=== PATIENT | male | born 1935 | race Caucasian/White ===

== ENCOUNTER → 2023-08-16 09:42 | Outpatient (REF) | payer MEDICARE, BC, SELFPAY | LOC: RCS 09:42 | PROVIDERS: ATTENDING PHYSICIAN Internal Medicine | DX: I35.0 Nonrheumatic aortic (valve) stenosis (principal) | CPT/HCPCS: 93306 ==

== ENCOUNTER → 2023-10-29 06:31 | Outpatient (REF) | payer MEDICARE, BC, SELFPAY ==
[2023-10-29 08:32] LABS: ALT (SGPT) 14 U/L (0-50); AST (SGOT) 21 U/L (17-59); Alkaline Phosphatase 113 U/L (38-126); Blood Urea Nitrogen 25 mg/dl (9-20); Calcium 9.4 mg/dl (8.4-10.2); Carbon Dioxide 28 mmol/L (22-30); Chloride 105 mmol/L (98-107); Glucose 97 mg/dl (70-99); HDL Cholesterol 45 mg/dl; LDL Cholesterol, Calculated 26 mg/dl; Potassium 4.8 mmol/L (3.5-5.1); Sodium 142 mmol/L (135-145); Total Bilirubin 0.6 mg/dl (0.2-1.3); Total Cholesterol 91 mg/dl (50-199); Total Protein 6.6 g/dl (6.3-8.2); Triglyceride 101 mg/dl (10-149); Very Low Density Lipoprotein 20 mg/dl (0-30); eGFR 58.53
== END ==
LOC: REG 06:31
PROVIDERS: ATTENDING PHYSICIAN Internal Medicine Cardiovascular Disease; FAMILY PHYSICIAN Internal Medicine
DX: I48.91 Unspecified atrial fibrillation (principal); I10 Essential (primary) hypertension; E78.5 Hyperlipidemia, unspecified; E78.49 Other hyperlipidemia
CPT/HCPCS: 36415; 80053; 80061

== ENCOUNTER → 2024-04-30 08:46 | Outpatient (REF) | payer MEDICARE, BC, SELFPAY | LOC: RCS 08:46 | PROVIDERS: ATTENDING PHYSICIAN Internal Medicine Cardiovascular Disease; FAMILY PHYSICIAN Internal Medicine | DX: I35.0 Nonrheumatic aortic (valve) stenosis (principal) | CPT/HCPCS: 93306 ==

== ENCOUNTER 2024-05-27 06:17 | Day surgery (SDC) | payer MEDICARE, BC, SELFPAY ==
[2024-05-25 08:11] VITALS: BMI 30.4
[2024-05-27] VITALS (14 sets, daily range): BP systolic 121–156; BP diastolic 53–88
[2024-05-27] MEDS: LOW STRENGTH ASPIRIN 324 MG PO (07:16)
--- NOTE | 2024-05-27 11:07 | CONSULT.STRU ---
Consultation
-
Date/Time Consultation Requested: 05/27/2024
Date/Time Consultation Performed: 05/27/2024
Requesting Provider: Barb Lubin MD
Performing Provider: MARCEL Andersen
Reason for Consultation: /TAVR
Patient History
Physicians
Family Physician: Dung Frazier MD
Outpatient Event Planning Intern: Rene Hebert MD
Primary Event Planning Intern: Rene Hebert MD
History of Present Illness
Mr. Nunez is an 88 yom with a history of critical , CVA, HTN, AF, and PFO. His echocardiogram from 04/30/2024 is notable for an EF 55-60%, AV P/M 104/64, RONNI 0.64, pk jennifer 5.04, mild AI, mild Ms, mild MR, MAC, mild TR, PAP 38. Patient's cardiac
catheterization from today (05/27) is significant for MVCAD. From a symptomatology standpoint, Mr. Nunez describes MONTOYA/SOB that has progressively gotten worse over the last several months. He also has slight left ACW discomfort that last very briefly
(1-2 seconds) and positional dizziness. He denies PND, palpitations, edema, or fever. Discussed the pathophysiology and treatment options of including SAVR and TAVR. Also explained to patient and daughter he also has MVCAD. Explained the
evaluation process comprising of CT scan, CT surgical consult, dental clearance, and a heart team discussion. The heart team will discuss management of MVCAD and TAVR as well as timing. The patient adamantly expressed his wishes not to have an open
heart procedure. Appointments, prescriptions, TAVR booklet, and contact information given to kalint and daughter. Allowed for and answered questions at bedside.
Past Medical History
Past Medical History: Atrial Fib, CVA/TIA, HTN, Valvular Disease (critical , mild MS) and Other (hyperlipidemia, PFO)
Past Surgical History
Past Surgical History: Cholecystectomy and Orthopedic ((R) shoulder RTC repair)
Dental History
unable to recall the name of his dentist. He will make an appointment and let us know the name.
Family History
Mother: at Age
Father: at Age
Family Medical History: Early CAD and Diabetes
Social History
Alcohol: Occasional
Drug: None
Tobacco: Former Smoker
Living: Alone
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
Allergies
Allergy/AdvReac Type Severity Reaction Status Date / Time
No Known Drug Allergies Allergy Unknown Verified 05/27/24 07:02
Home Medications
�Medication �Instructions �Recorded �Confirmed �Type
atorvastatin 40 mg tablet 40 mg PO QPM #30 tabs 11/11/20 05/27/24 Rx
lisinopril 10 mg tablet 10 mg PO BID #60 tabs 11/11/20 05/27/24 Rx
amlodipine 5 mg tablet 5 mg PO DAILY #60 tabs 12/07/20 05/27/24 Rx
apixaban 5 mg tablet (Eliquis) 5 mg PO Q12H 12/07/20 05/27/24 Rx
aspirin 81 mg chewable tablet 81 mg PO DAILY #1 tab 05/27/24 Rx
STS%
STS %: 4.17 (AVR)
Review of Systems
-
History Source: Patient
General: Reports Fatigue
HEENT: Reports Other (chronic dry cough)
Respiratory: Reports SOB and MONTOYA
Cardiac: Reports Chest Pain (minor, brief LACW 'twinge')
Abdomen/GI: Reports No Symptoms
: Reports No Symptoms
Musculoskeletal: Reports No Symptoms
Skin: Reports No Symptoms
Neurological: Reports Dizzy (positional )
Physical Exam
Vital Signs
Temp 98.3 F 05/27/24 07:31
Temp route: Oral 05/27/24 07:31
Pulse 43 05/27/24 11:00
Resp Rate 16 05/27/24 07:31
Blood pressure 133/82 02/06/25 10:53
Blood pressure extremity used: Left upper arm 05/27/24 07:31
Position: Lying 05/27/24 07:31
MAP (cuff-Dalila Monitor) 99 05/27/24 10:53
SaO2 96 05/27/24 11:00
Oxygen Mode of Delivery Room air 05/27/24 09:45
Can the patient verbally communicate their pain? Yes 05/27/24 09:45
Actual Weight 85.3 kg 05/25/24 08:11
Body Mass Index (BMI) 30.4 05/25/24 08:11
Labs
05/25/2024
HH: 14.3/42.6
plt: [id number]
BUN/Cr: 311.1
GFR: >60
Diagnostic Studies
Echocardiogram 04/30/2024:
CONCLUSIONS
1. Very technically difficult study.
2. Moderate concentric left ventricular hypertrophy. Normal left ventricular
systolic function without regional wall motion abnormalities. Estimated left
ventricular ejection fraction is 55 to 60% by visual estimation. Stage I
diastolic dysfunction, suggestive of abnormal relaxation.
2. Normal right ventricular size and systolic function.
3. Moderately dilated left atrium.
4. Calcified thickened aortic valve with restricted leaflet motion. Peak and
mean transaortic gradients are 104/64 mmHg, respectively. Calculated aortic
valve area is 0.64 cm2 by the continuity equation consistent with
severe/critical aortic stenosis. Mild to moderate aortic regurgitation.
Dimensionless index of 0.2. Stroke-volume index of 45 mL/m2.
5. Mild tricuspid regurgitation with estimated pulmonary artery systolic
pressure of 38 mmHg, assuming a right atrial pressure of 3 mmHg.
6. No pericardial effusion.
Compared to prior echocardiogram from August 16, 2023, mean transaortic gradient
increased from 44 to 64 mmHg with aortic valve area decreasing from 0.8 to 0.6
cm2
Procedure Type:�CABG + AVR
Perioperative Outcome Estimate %
Operative Mortality 5.32%
Morbidity & Mortality 17.3%
Stroke 2.6%
Renal Failure 2.43%
Reoperation 5.19%
Prolonged Ventilation 9.17%
Deep Sternal Wound Infection 0.13%
Long Hospital Stay (>14 days) 16.5%
Short Hospital Stay (<6 days)* 12.7%
Procedure Type:�Isolated AVR
Perioperative Outcome Estimate %
Operative Mortality 4.12%
Morbidity & Mortality 10.1%
Stroke 1.8%
Renal Failure 1.98%
Reoperation 3.26%
Prolonged Ventilation 5.95%
Deep Sternal Wound Infection 0.071%
Long Hospital Stay (>14 days) 6.42%
Short Hospital Stay (<6 days)* 30.3%
Exam
General: Well Developed and Well Nourished
HEENT: Normocephalic
Neck: Trachea Midline
Respiratory: Clear (anteriorly)
Cardiac: S1/S2, Regular Rhythm and Murmur (III/ MAHSA)
GI: Soft and Non Tender
Rectal: Deferred by Provider
Skin: Warm and Dry
Neuro: Awake, Alert, Oriented and AO x 3
Psych: Calm
Assessment / Plan
-
Severe aortic stenosis
Continue TAVR evaluation
Trend creatinine after contrast administration (Rx given)
TAVR CT scan (06/08)
CT surgical consult (06/14 TT)
Frailty testing and KCCQ12
Dental clearance
Will hold Eliquis x 48 hours before TAVR
Continue aspirin
Heart team discussion
Data Reviewed
-
Mash Tub Cooker: Discussed with Physician
Echo: Report Reviewed by me and Discussed with Physician
Labs: Labs Reviewed by me
Old Records: Reviewed (Dr. Hebert's office note)
Total Time Spent with Patient (in minutes): 45
--- NOTE | 2024-05-27 11:36 | ITS.CL.CATH ---
Display Manager - Catheterization
Cardiac Catheterization
Procedure Report:
LEFT HEART CATHETERIZATION
Date of Procedure: May 27, 2024
Referring: Deshawn Hebert
PROCEDURES:
1. Left heart catheterization, coronary angiogram.
2. Ultrasound-guided access.
INDICATION: Pre-TAVR workup for critical aortic stenosis, mean aortic valve gradient on most recent echo more than 60 mmHg. Patient only complains of ongoing fatigue and increased tiredness without chest discomfort or shortness of breath at rest or
with exertion
ACCESS: Right radial artery, 6 Nepalese sheath, under ultrasound guidance.
Ultrasound was utilized for vascular access. The radial artery was visualized under ultrasound, and the vessel was patent and pulsatile. An image was stored permanently in the patient's medical record. Under direct ultrasound guidance, a 6 Nepalese
sheath was inserted into the artery using a micropuncture kit through a modified Seldinger technique.
HEMODYNAMICS : (mmHg)
AO (s/d) : 148/51
Aortic valve was not crossed for LV pressures in the setting of known critical aortic stenosis based on most recent echocardiogram.
CORONARY FINDINGS
DOMINANCE: Right
LEFT MAIN: The left main artery is a large-caliber vessel which gives rise to the left anterior descending artery, the ramus intermedius branch and a left circumflex artery. There is mild distal tapering.
LEFT ANTERIOR DESCENDING: The left anterior descending artery is a medium caliber vessel which gives rise to 3 major diagonal branches as it courses through the anterior interventricular groove and wraps around the apex. D1 is a medium caliber
vessel with ostial to proximal 60% stenosis. D2 is a small to medium caliber vessel with ostial 80% stenosis. Ostial LAD has a tubular 70% stenosis with heavily calcified 90% stenosis at the level of the takeoff of D2.
RAMUS INTERMEDIUS: The ramus intermedius branch is a medium to large caliber vessel with a slightly, heavily calcified ostial to proximal up to 70 to 80% stenosis.
CIRCUMFLEX: The left circumflex artery is a medium to large caliber vessel which gives rise to 1 major obtuse marginal branch. There is a calcified ostial 50 to 60% focal stenosis. Otherwise there is mild diffuse atherosclerotic plaque.
RIGHT CORONARY ARTERY: The right coronary artery is a medium caliber, dominant vessel which gives rise to the right posterior descending artery and a small right posterolateral system. The distal RCA has tubular 60% stenosis. Ostial PL branch
which is small in caliber has 50 to 60% stenosis. Otherwise there is mild diffuse atherosclerotic plaque.
SEDATION: 44 minutes of procedural sedation was utilized. An independent medical education coordinator was present to assist with and help manage the patient's level of consciousness and physiologic status.
RADIATION SUMMARY: Fluoro Time (min): 4.8, Dose (mGy): 534.48, DAP (Gy.cm2) : 31.95
Closure Device: Vascular band over right radial artery, 10 cc of air
CONCLUSIONS
1. Significant multivessel coronary artery disease as described above.
2. Known critical aortic stenosis with mean transaortic gradient of 64 mmHg by most recent echocardiogram.
RECOMMENDATIONS
1. We will proceed with TAVR protocol CT of chest, abdomen and pelvis and CT surgery consult with plan to review all of the data and discuss at the next structural heart meeting in regards to best treatment strategy.
2. Aggressive management of cardiovascular risk factors and optimization of medical therapy.
3. Wean radial band per protocol.
4. Eventual referral for outpatient cardiac rehab.
Copy to: Deshawn Hebert
Barb Lubin MD, FACC, [facility]
== END 2024-05-27 12:30 | disposition home or self-care (01) ==
LOC: CATH 06:17
PROVIDERS: ATTENDING PHYSICIAN Internal Medicine Interventional Cardiology; FAMILY PHYSICIAN Internal Medicine; OTHER PHYSICIAN Internal Medicine Cardiovascular Disease
DX: I08.3 Combined rheumatic disorders of mitral, aortic and tricuspid valves (principal); I25.10 Atherosclerotic heart disease of native coronary artery without angina pectoris; R06.02 Shortness of breath; I25.84 Coronary atherosclerosis due to calcified coronary lesion; Q21.12 Patent foramen ovale; E78.49 Other hyperlipidemia; I11.9 Hypertensive heart disease without heart failure; Z82.49 Family history of ischemic heart disease and other diseases of the circulatory system; Z86.73 Personal history of transient ischemic attack (TIA), and cerebral infarction without residual deficits; Z87.891 Personal history of nicotine dependence; R53.83 Other fatigue; Z90.49 Acquired absence of other specified parts of digestive tract; Z79.82 Long term (current) use of aspirin; Z79.01 Long term (current) use of anticoagulants; Z79.899 Other long term (current) drug therapy
CPT/HCPCS: 99152; 99153; 76937; 93454; C1894; Q9967

== ENCOUNTER → 2024-05-28 13:04 | Outpatient (REF) | payer MEDICARE, BC, SELFPAY ==
[2024-05-28 14:41] LABS: Blood Urea Nitrogen 31 mg/dl (9-20); Calcium 9.1 mg/dl (8.4-10.2); Carbon Dioxide 31 mmol/L (22-30); Chloride 104 mmol/L (98-107); Glucose 94 mg/dl (70-99); Sodium 140 mmol/L (135-145); eGFR 58.53
== END ==
LOC: REG 13:04
PROVIDERS: ATTENDING PHYSICIAN Nurse Practitioner Acute Care; FAMILY PHYSICIAN Internal Medicine
DX: I35.0 Nonrheumatic aortic (valve) stenosis (principal)
CPT/HCPCS: 36415; 80048

== ENCOUNTER → 2024-06-08 09:58 | Outpatient (REF) | payer MEDICARE, BC, SELFPAY | LOC: RAD 09:58 | PROVIDERS: ATTENDING PHYSICIAN Nurse Practitioner Acute Care | DX: I35.0 Nonrheumatic aortic (valve) stenosis (principal) | CPT/HCPCS: 74174; 75572; Q9967 ==

== ENCOUNTER 2024-07-01 09:17 | Inpatient (IN) | payer MEDICARE, BC, SELFPAY ==
[2024-06-25 09:53] VITALS: BMI 29.5
[2024-06-25 10:36] LABS: % Basophils 0.5 % (0-2); % Eosinophils 8.8 % (0-6); % Immature Granulocytes 0.3 % (0-0.5); % Lymphocytes 25.1 % (20.5-51.1); % Monocytes 6.7 % (1.7-9.3); % Neutrophils 58.6 % (42.2-75.2); Absolute Eosinophils 0.7 10^3/uL (0-0.7); Absolute Monocytes 0.5 10^3/uL (0.1-0.6); Absolute Neutrophils 4.6 10^3/uL (1.4-6.5); Hematocrit 42.9 % (39.0-52.0); Hemoglobin 14.3 g/dL (13.0-18.0); Mean Corp Hgb Conc. 33.3 g/dL (33.0-37.0); Mean Corpuscular Hgb 30.7 pg (27.0-31.0); Mean Corpuscular Volume 92.1 fL (80.0-94.0); Mean Platelet Volume 10.1 fL (7.4-10.4); Nucleated Red Blood Cells % 0 % (-); Platelet Count 193 10^3/uL (130-400); Red Blood Cell Count 4.66 10^6/uL (4.70-6.10); White Blood Cell Count 7.8 10^3/uL (4.8-10.8)
[2024-06-25 10:44] LABS: INR 1.13; PT 14.8 Sec (11.4-14.6)
[2024-06-25 10:45] LABS: APTT 31.4 Sec (23.4-35.0)
[2024-06-25 10:51] LABS: ALT (SGPT) 14 U/L (0-50); AST (SGOT) 17 U/L (17-59); Albumin 3.9 g/dl (3.5-5.0); Alkaline Phosphatase 114 U/L (38-126); Blood Urea Nitrogen 29 mg/dl (9-20); Calcium 9.3 mg/dl (8.4-10.2); Carbon Dioxide 30 mmol/L (22-30); Chloride 102 mmol/L (98-107); Direct Bilirubin 0.1 mg/dl (0.0-0.4); Estimated Creatinine Clearance 37 ml/min; Glucose 158 mg/dl (70-99); Potassium 4.7 mmol/L (3.5-5.1); Sodium 139 mmol/L (135-145); Total Bilirubin 0.7 mg/dl (0.2-1.3); Total Protein 6.8 g/dl (6.3-8.2); eGFR 53.17
[2024-06-25 10:59] LABS: NT-proBNP 1280 pg/ml
[2024-06-25 11:08] LABS: Urine Albumin 2+ (Neg - Trace); Urine Bilirubin Negative (Negative); Urine Character Clear (Clear); Urine Color Yellow; Urine Glucose Negative (Negative); Urine Ketone Negative (Negative); Urine Leukocyte Negative (Negative); Urine Nitrite Negative (Negative); Urine Occult Blood Negative (Negative); Urine Specific Gravity 1.015 (<1.030); Urine Urobilinogen Negative (Neg - 1+)
[2024-06-25 11:35] LABS: Urine Mucus Many
[2024-06-25 11:36] LABS: Urine Amorphous Seen
[2024-06-25 11:37] LABS: Urine Red Blood Cell 0-2 /HPF (0-2)
[2024-06-25 11:39] LABS: Urine Bacteria Few (Negative)
--- NOTE | 2024-06-25 11:56 | CM ---
spoke to pt and daughter in PAT's. he is prev indep, lives alone in a split level home with 3 steps to enter. he denies any dme's. he is agreeable to a f/u visit from the ct transitional care nurse after dc. he has the TAVR educ book, soap and
instructions. plan is for TAVR 07/01, cm role explained and all questions answered.
[2024-06-25 11:58] LABS: Glycohemoglobin (HgbA1c) 5.8 % (4.0-5.6)
[2024-07-01] VITALS (16 sets, daily range): BP systolic 117–151; BP diastolic 51–67; BMI 29.5
[2024-07-01 09:45] LABS: Glucose - Point of Care 95 mg/dl (70-99)
--- NOTE | 2024-07-01 09:45 | W.CVOR.SURPR ---
CVOR Surgeon Immed Pre Op
-
I have examined this patient prior to performance of the scheduled procedure.
The patient's condition is unchanged from the time of the dictated/written History and
Physical and the patient is able to undergo the scheduled procedure.
TF TAVR
Mr. Nunez has determined he is a Limited Rescue, shocks/CPR only.
No sternotomy no CPB.
--- NOTE | 2024-07-01 12:36 | ITS.CL.TAVR ---
Stock Drier Tender - TAVR Report
TAVR PRocedure
Procedure Report:
TRANSCATHETER AORTIC VALVE REPLACEMENT
Date of Procedure: July 01, 2024
Referring: Deshawn Hebert MD
Operators: Drs. Barb Lubin and Dimitri Claudio MD
PROCEDURE PERFORMED:
1. Successful placement of 26 mm Mooney Noemi S3 aortic valve via right common femoral approach.
ACCESS:
1. Left common femoral artery, 6 [place]an sheath, under ultrasound guidance using a micropuncture kit.
2. Left common femoral vein, 6 [place]an sheath, under ultrasound guidance using a micropuncture kit.
3. Right common femoral artery, 8 [place]an sheath, under ultrasound guidance using a micropuncture kit.
Ultrasound was utilized for vascular access. The right and left femoral artery and vein were visualized under ultrasound, and the vessels was patent and arteries were pulsatile. An image was stored permanently in the patient's medical record.
Under direct ultrasound guidance, a 6 [place]an sheaths was inserted into the left common femoral artery and vein, and an 8 [place]an sheath in the right common femoral artery, respectively, using a micropuncture kit through a modified Seldinger technique.
PREPROCEDURE NYHA CLASS: II
DESCRIPTION OF PROCEDURE: The patient was referred for assessment of severe symptomatic aortic stenosis and following a comprehensive evaluation it was felt that transcatheter aortic valve replacement (TAVR) would be the most appropriate treatment.
Informed consent was obtained prior to the procedure. A 'time-out' was called and the procedural plan was verbally confirmed by anesthesia, surgery, perfusion, and garden labourer staff.
Arterial and venous access site were obtained in the left common femoral artery and vein using ultrasound guidance and micropuncture technique. 6 Fr. sheaths were inserted.
A 5 Fr. transvenous pacing wire was advanced to the right ventricle where excellent pacing thresholds were obtained.
A 5 Fr. pigtail catheter was then advanced to the proximal ascending aorta / right aortic cusp where angiography was performed in multiple angles to define the co-planar angle that was most appropriate valve deployment (PAKISTANI 8/caudal 25).
Ultrasound guidance was then used to obtain arterial access in the right common femoral artery and a 6 Fr. sheath was inserted. Angiography was performed and the arteriotomy site appeared appropriate for preclosure with two Perclose devices. An 8
Fr sheath was then inserted back into the common femoral artery over a J-tipped guidewire. An AL1 catheter was positioned in the proximal descending aorta. An Extra Stiff 0.035' J-tip wire was inserted to provide extra-support to facilitate the
Mooney eSheath delivery. The 14 Fr. Mooney eSheath was successfully advanced in the descending thoracic aorta.
An AL1 catheter was advanced through the Mooney eSheath over a 0.035' J-tip guide wire. The AL1 catheter was positioned just above the aortic valve. A 0.035' Straight tip wire probed the aortic valve and crossed the stenotic leaflets. The AL1
was then advanced to the mid left ventricle. Invasive left ventricular end-diastolic pressure was elevated at 23 mmHg. An Amplatz Extra-stiff wire with a generous curved tip was then positioned in the left ventricular apex. A 26 mm Mooney Noemi
S3 valve was brought to the table and the orientation of the valve on the balloon delivery system was confirmed by all operators. The Noemi S3 valve was advanced through the eSheath and into the proximal descending thoracic aorta. The Noemi S3
valve was centered on the delivery balloon and the entire system was retroflexed as it crossed the aortic arch. The Noemi S3 delivery system was then advanced across the stenotic valve and the 26 mm Noemi S3 valve was deployed during rapid
pacing. The valve deployment was uneventful. Transthoracic echocardiographic images post valve deployment revealed minimal aortic insufficiency with excellent position of the aortic prosthesis.
The Mooney balloon and delivery system were then removed. The Mooney sheath was removed and the Perclose knots were advanced to the arteriotomy site resulting in excellent hemostasis.
Fluoro Time: 17.1 min, Dose: 1141.72 mGy, DAP : 83.54 Gy.cm2
CONCLUSIONS:
1. Severe symptomatic aortic stenosis. Successful deployment of a 26 mm Noemi S3 valve with minimal aortic insufficiency post procedure
2. Successful arteriotomy closure with 2 Perclose devices.
3. Acute on chronic diastolic heart failure with LVEDP elevated at 23 mmHg
Copy to: Deshawn Hebert MD and Dung Frazier MD
Barb Lubin MD, [facility], [facility]
[2024-07-01] MEDS: ANCEF 10 IV ×2 (12:42)
[2024-07-01 13:42] LABS: ACT-LR - POC 303 Seconds (116-155)
--- NOTE | 2024-07-01 13:56 | CM ---
Chart reviewed. Patient is in the OR today. Patient is independent of ADLS, lives alone in a split level, 3 TYLER, 0 DME. Plan is for the patient to return home with CT Transitional RN. CM to follow
--- NOTE | 2024-07-01 14:19 | W.PN.CT.SURG ---
CT Surgery Operative Note
-
OPERATIVE REPORT
Preoperative Diagnosis: Severe aortic valve stenosis, symptomatic
Postoperative Diagnosis: Same
Procedure(s) Performed: Right trans femoral TAVR with a 26mm, nominal, Mooney TAVR valve with pre-TAVR BAV
Date of Procedure: 07/01/24
Comorbidities:
1. Severe aortic stenosis, symptomatic
2. sinus bradycardia
3. hypertension
4. HLD
5. multi vessel CAD
6. type 2 diabetes
Cardiac Surgeon: Dimitri Claudio MD, MS
Locomotive Supervisor: Barb Lubin MD
Anesthesia: Conscious Sedation and Local Analgesia
EBL: 100cc
Products: none
Implant: 26 mm Mooney TAVR valve, SN: [id number]
Indication(s) for Procedures: 88-year-old male with symptomatic severe aortic stenosis. CT-TAVR protocol revealed acceptable anatomy for TAVR access and implantation. He has multiple vessel coronary artery disease however given his comorbidities
and frailty, he was not considered an optimal candidate for surgical revascularization and surgical aortic valve replacement. Plan is to move forward with intervention on his aortic valve stenosis and then revisit his coronary disease as needed.
Start time: 1300hrs
Deployment time: 1350hrs
End time: 1407hrs
Radiation Dose (mGy): 1141.72
DAP (cm2.Gy): 83.5410
Fluoroscopy time (minutes): 17.1
Contrast volume (ml): 142
TAVR gradient (mmHg): Unable
Heparin Dose: 7000units
Protamine Dose: 40mg
Final Valve Positionin/10
Findings: An echocardiogram was unable to be performed due to poor windows. Hemodynamically was stable after deployment of the valve. The aortic valve appeared well seated with trace to mild detectable PVL on aortogram. He did return to a sinus
bradycardic rhythm after pulling the valve however there was intermittent paced beats and so the temporary pacing wire was left in place. There was successful placement of 26 mm nominal TAVR valve without acute complications.
Access:
1. Device -right common femoral artery, perclose x 2
2. Pigtail -left common femoral artery +6 Erit[place]an Angio-Seal
3. Transvenous Pacer -left common femoral vein, transvenous temporary wire left in place with 6 Eritrean sheath
Description of Procedure: The patient was taken to the curb and gutter laborer. Their identity and procedure to be performed were verified and they were positioned supine on the curb and gutter laborer table. Induction via conscious sedation. The patient was then prepped and
draped from chin to thigh in a sterile fashion. A preoperative time-out was performed with all members of the team present. Arterial and venous access was performed using fluoroscopy and ultrasound guidance with micropuncture and Seldinger
technique. Two perclose devices were used on the device side followed by access to the aorta with a stiff wire to facilitate E-sheath placement. Heparin was given. A stiff straight wire and AL-1 catheter was used to cross the aortic valve. The stiff
wire was exchanged for an extra stiff coiled tip wire. The valve was prepped and mounted on to the device carrier. An ACT of >250 was achieved. We verified x 3 that the valve was mounted in the correct orientation with the skirt of the valve
directed toward the tip of the device carrier. At this point with access to the left ventricle, a BAV balloon was inserted and crossed. Under rapid pacing at 180 bpm, we performed a balloon valvuloplasty with good effect. There is rapid recovery
of vitals. The balloon was then removed and over the same wire we advanced the device into the descending thoracic aorta where the valve was them mounted onto the balloon under fluoroscopy. The device was flexed and advanced over the arch into the
root and positioned across the aortic valve. Contrast fluoroscopy was used to visualize the prosthesis across the valve and to guide positioning. A pigtail catheter in the RCC as used as a guide. We aimed to have the bottom of the device marker at
the annular hinge point. The device sheath was pulled back. We performed a quick pre-deployment time out. The pacer was turned on and had capture. Blood pressure fell accordingly, angiography was done to verify the intended final placement and the
valve was deployed with 5 seconds of rapid pacing to nominal volume. The balloon was deflated and the pacer was turned off. We had recovery of vitals. The device carrier was unflexed and positioned back in the descending thoracic aorta. A
transthoracic echocardiogram was attempted however there were poor windows and were unable to obtain good images. The device was removed from the E-Sheath maintaining wire access followed by removal of the E-sheath as we cinched down the perclose
devices. There was acceptable hemostasis. The pigtail was withdrawn into the descending/abdominal and completion aortogram with runoff run-off angiography was performed. There was no stenosis or dissection of bilateral iliofemoral systems. There was
acceptable hemostasis of bilateral groins and manual pressure was held following wire removal. Low dose protamine was administered after checking another ACT.
All instrument, sponge, and needle counts were confirmed to be correct x 2 at the end of the operation. The patient was transferred to the cardiac intensive care unit in stable condition.
I, Dr. Dimitri Claudio, was present, scrubbed for, and performed all critical elements of this procedure.
Dimitri Claudio MD
Cardiothoracic Surgeon
[facility]
This operative dictation was created using the [employer] dictation system. Please excuse any grammatical, typographical, or 'sound alike' errors
--- NOTE | 2024-07-01 15:32 | W.PN.UPDATE ---
Update Note
Progress Note Update
Reviewed Mr. Nunez with the heart team in the preTAVR SDM meeting and confirmed a 26mm S3 via right TF access. Patient will resume Eliquis and Aspirin post TAVR. LVEDP 23mmHg. #26mm S3 (serial# [id number]) successfully deployed via (R) TF access.
Unable to obtain post implant MG.
--- NOTE | 2024-07-01 16:25 | PTCARENOTE ---
Rec'd Pt from recovery s/p TAVR, A,A+Ox3, HR 40's SB. Pt has trans-venous pacer wire to temporary pacer, settings- HR 35, MA 20. L femoral vein sheath sutured in place. NSS infusing at KVO via L femoral vein. Bilat femoral artery dsgs D+I, Weak DP
pulses. Neuro check WNL.
[2024-07-01] MEDS: LIPITOR 40 MG PO (18:04)
[2024-07-01] MEDS: NSS 1000 IV (18:31)
[2024-07-01] MEDS: MELATONIN 5 MG PO (21:39)
[2024-07-01] MEDS: ANCEF 5 IV (21:39)
[2024-07-02] VITALS (18 sets, daily range): BP systolic 118–165; BP diastolic 49–70; PULSE 67; O2SAT 96; BMI 29.8
[2024-07-02] MEDS: ROXICODONE 5 MG PO (01:05)
--- NOTE | 2024-07-02 01:21 | PTCARENOTE ---
assumed care of patient at the change of shift. AAOx3. neuro intact. SB 40s on tele. L venous sheath in place. temporary pacer- HR 35, MA 20. dressing CDI. KVO fluids infusing. LLE-+ DP pulse/leg warm/+ sensation. R groin site intact-old
drainage-marked, no change. reviewed activity restrictions with patient and verbalized understanding. patient able to void in urinal. NPO at midnight for possible permanent PPM in AM.
at approx 0100, patient rang for RN complaining of lower back pain. patient appears uncomfortable. PRN oxy 5 mg given, see mar. b/l groin sites intact/soft. adjusted patient in bed. comfort measures provided.
[2024-07-02 04:55] LABS: Hematocrit 35.9 % (39.0-52.0); Hemoglobin 12.4 g/dL (13.0-18.0); Mean Corp Hgb Conc. 34.5 g/dL (33.0-37.0); Mean Corpuscular Hgb 31.5 pg (27.0-31.0); Mean Corpuscular Volume 91.1 fL (80.0-94.0); Mean Platelet Volume 10.3 fL (7.4-10.4); Platelet Count 132 10^3/uL (130-400); Red Blood Cell Count 3.94 10^6/uL (4.70-6.10); Red Cell Dist. Width 12.9 % (11.5-14.5); White Blood Cell Count 11.1 10^3/uL (4.8-10.8)
[2024-07-02 05:19] LABS: Blood Urea Nitrogen 28 mg/dl (9-20); Calcium 8.9 mg/dl (8.4-10.2); Carbon Dioxide 26 mmol/L (22-30); Chloride 102 mmol/L (98-107); Estimated Creatinine Clearance 44 ml/min; Glucose 101 mg/dl (70-99); Sodium 136 mmol/L (135-145); eGFR > 60.00
--- NOTE | 2024-07-02 05:46 | PTCARENOTE ---
patient urinating small amounts of yellow urine. denies any discomfort. bladder scan 416. patient urinated another small amount-90cc. post void residual-350. Meaghan CASTRO PA aware. will hold off on straight cath right now. patient educated to
updated RN with any bladder discomfort.
b/l groin sites intact/no changes overnight. HR SB 40s. bp stable.
[2024-07-02] MEDS: DILAUDID 0.25 MG IV (06:02)
--- NOTE | 2024-07-02 06:06 | PTCARENOTE ---
patient complaining of severe back pain. appears to be comfortable. PRN Dilaudid given, see mar.
--- NOTE | 2024-07-02 07:15 | PTCARENOTE ---
Left venous sheath sutured in left groin w/ pacer wire intact. NSS at KVO. Temporary wire setting: VVI 35, MA 20.
--- NOTE | 2024-07-02 07:40 | W.PN.CT ---
Today's Communication / Plan
-
-pod #1
-sinus marielle 40s overnight. No pauses
-L groin with temp pacing wire (VVI 35 backup)
-held Norvasc and Lisinopril to avoid hypotension
-held am Eliquis in case of pacer implant
-Echo today
Assessment / Plan
-
- Severe symptomatic - s/p Right trans femoral TAVR with a 26mm, nominal, Mooney TAVR valve with pre-TAVR BAV on 07/01/24, pod #1
- An echocardiogram was unable to be performed due to poor windows. Hemodynamically was stable after deployment of the valve. The aortic valve appeared well seated with trace to mild detectable PVL on aortogram.
- Temporary pacing wire was left in place d/t bradycardia
- Sinus bradycardia
- Hypertension
- HLD
- Multi vessel CAD
- DM II
- CVA 2004
- Paroxysmal a-fib - on Eliquis preop
- Throat abscess with temp. trach 2004
- B/l rotator cuff repair
Discussed patient care with: Nursing and Care Team
Subjective
-
Date of Service: July 02, 2024
Objective Data
-
PT 14.8 Sec (11.4-14.6) H 06/25/24 10:05
INR 1.13 06/25/24 10:05
APTT 31.4 Sec (23.4-35.0) 06/25/24 10:05
Vital Signs
Vital Signs
Temp Pulse Resp BP Pulse Ox
98.0 F 43 14 149/54 97
07/02/24 00:10 07/01/24 23:00 07/02/24 00:10 07/01/24 21:33 07/02/24 00:10
CT Intake/Output/Weight
07/01/24 07/01/2407/02/25
06:59 18:59 06:59
Output Total 200 / 200
Balance -200 / -200
SaO2: 97
Physical Exam
-
General: Awake and AOx3
Cardiovascular: Regular rate & rhythm, No Murmurs and No Rub
Respiratory: Decreased Breath Sounds
Incision: Other (groins are cdi, soft, nontender, no hematoma b/l. L groin with temp pw)
Extremities: No Edema (DP 1+ b/l)
Abdomen: soft, nontender, nondistended, + bowel sounds.
Data Reviewed
-
Lab Results: Results Reviewed
Medications: Active Meds Reviewed
Chest X-Ray: Report Reviewed and Image Reviewed
ECG: Report Reviewed and Image Reviewed
[2024-07-02 08:11] LABS: ACT-LR - POC 87 Seconds (116-155)
[2024-07-02] MEDS: LOW STRENGTH ASPIRIN 81 MG PO (09:02)
--- NOTE | 2024-07-02 09:45 | W.DCSUMMARY ---
Discharge Summary
Discharge Data
Date of Admission: 07/01/24
Date of Discharge: 07/02/24
-
Pending Results: No
Hospital Course
Primary care physician:
Karin Razo
Outpatient grief counselor:
Rene Hebert
Inpatient consultants:
Procedures:
1. 07/01/24: Right trans femoral TAVR with a 26mm, nominal, Mooney TAVR valve with pre-TAVR BAV
Primary Diagnosis:
1. s/p TF TAVR
2. CAD
Secondary Diagnoses:
1. HTN
2. HLD
3. DM
4. CVA 2004
5. AF
6. PFO
7. B/L RTC repair
8. throat abscess with temporary tracheostomy in 2004
HPI: 88-year-old male with symptomatic severe aortic stenosis. CT-TAVR protocol revealed acceptable anatomy for TAVR access and implantation. He has multiple vessel coronary artery disease however given his comorbidities and frailty, he was not
considered an optimal candidate for surgical revascularization and surgical aortic valve replacement. After discussion with the patient and Cardiology, the plan was to move forward with intervention on his aortic valve stenosis and then revisit his
coronary disease as needed.
Hospital course: The patient was admitted via same day admissions on 07/01/24, taken to the mill labor supervisor, and underwent Right trans femoral TAVR. He tolerated the procedure well, however, was noted to be bradycardic after valve deployment so a
temporary pacemaker wire was placed via venous sheath. He was transferred to CVICU in stable condition on Levophed for BP support. The Levophed was slowly weaned and discontinued. POD#1 EKG revealed sinus bradycardia of 50 without any evidence of
bundle branch block. He did not require the use of his pacing wire and it was removed along with the venous sheath. Echocardiogram was performed and reviewed by Dr. Claudio. It was felt that he could safely be discharged to home.
Home medication changes:
no changes to home medication regimen.
Discharge Plan
-
Patient Disposition: Home (Routine Discharge)
Discharge Diagnosis/Procedures: TF-TAVR
Diet: Low Cholesterol and 2 Gram Sodium
Activity: As tolerated
Driving Restrictions: No driving for 1 week
Bathing Restrictions: OK to Shower
Others Tests: 30 day follow up echocardiogram:
Other Services: Cardiac Rehab
Wound Care: Please do not apply lotions, creams or powders to groin areas. Please monitor for increased pain, redness, swelling or drainage. Notify your doctor if any occur.
Specialty Instructions: Weigh Daily- Call MD for wt gain/loss 3 lbs overnight/5 lbs in 1 week
Instructions: Transcatheter aortic valve implantation - Discharge instructions, Transcatheter aortic valve implantation
Referrals:
CT Transitional Care Nurse [Outside] (The Cardiothoracic Transitional Care Nurse will call you to set up a visit in 1-2 days.)
[facility]. Cardiac Rehab [Outside] - 08/04/24 1:00 pm
(Cardiac Rehab Orientation appointment is on 08/04/24 at 1:00 pm
The Cardiac Rehab gym is located on the first floor of the Cardiovascular and [facility] Pavilion.)
Betsy Browne PA-C [Specified Professional Personl] - 07/28/24 10:20 am
Dung Frazier MD [Family Provider] -
Prescriptions:
New
acetaminophen 325 mg Tablet
650 mg PO Q4HPRN PRN (Reason: GRAY, mild pain, or fever >101F) Qty: 0 0RF
Continued
atorvastatin 40 MG tablet
40 mg PO QPM Qty: 30 0RF
lisinopril 10 MG tablet
10 mg PO BID Qty: 60 0RF
amlodipine 5 MG tablet
5 mg PO DAILY Qty: 60 0RF
Eliquis 5 MG tablet
5 mg PO Q12H 0RF
aspirin 81 mg Tablet,Chewable
81 mg PO DAILY
Discharge Orders:
Discharge Patient (As Directed); Ordered 07/02/24
Ordered By: Sarabjit Whitaker
Care Plan Goals
Care Plan Goals:
Problem: Readiness for enhanced knowledge related to diagnosis and treatment plan
Goal: Understand your diagnosis and treatment plan needs, including medications if applicable.
Instructions: Know your diagnosis, underlying causes and treatment plan options, including medications if applicable. Consult with your health care team to learn about your diagnosis and treatment plan, including medications if applicable.
Discharge Date and Time
Print Language: WELSH
--- NOTE | 2024-07-02 10:38 | W.PN.CARDCBS ---
Addendum entered and electronically signed by Barb Lubin MD 07/02/24 18:47:
I saw and examined the patient.
The Towboat Engineer's note was reviewed and I agree with the note.
Comment: Patient is doing well this morning. No further pacemaker utilization overnight so temporary transvenous pacemaker was discontinued this morning.
Patient is well-appearing, no acute distress, no JVD, regular rate, normal S1 and S2, 2 out of 6 systolic ejection murmur over right upper sternal border, rubs or gallops, lungs are clear to auscultation bilaterally, abdomen is soft, nontender,
nondistended with active bowel sounds, warm extremities without significant edema.
Recommendations:
1. Patient is status post successful TAVR for critical aortic stenosis with a 26 mm NOEMI S3 valve. I reviewed the echocardiogram myself this morning which shows a mean transaortic gradient of 17 mmHg with trace PVL. Normal LVEF without
pericardial effusion.
2. Plan to resume Eliquis this morning along with outpatient blood pressure medications given hypertension.
3. No issues at bilateral groin sites without evidence of hematoma or bruit.
4. Potential discharge later today versus tomorrow depending on how patient does ambulating given bedrest overnight.
5. Bradycardia is back to baseline with no indication for permanent pacemaker.
Discussed with nursing and family at bedside. Answered all of their questions in significant detail.
Barb Lubin MD, [facility]
Total time spent: 51mins
Original Note:
Today's Communication / Plan
-
HR stable at baseline. No need for PPM or monitor at discharge
Resume Eliquis
Resume OP BP medications
If feeling well, ok for discharge later today verus in AM if continues to feel shaky/unwell
Follow up arranged.
Impression / Plan
-
Primary Motorcycle Deliverer: Dr. Hebert
Impression:
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
Paroxysmal atrial fibrillation
Chronic Eliquis AC
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
h/o CVA 2020
PFO/ASD
Right pharynx cellulitis with parapharyngeal abscess requiring temporary tracheostomy 2004
HTN
NIDDM
HLD
mod by echo 2018
hypomagnesemia
ECHO 2019: EF>75%, mild to mod MR, mod , peak/mean gradients 48/29mmHg, RONNI 1.1 cm2, mod TR
Echo 04/30/2024: EF 55-60%, moderate cLVH, stage I diastolic dysfunction, severe/critical with peak/mean gradients 104/64 mmHg, RONNI 0.64 cm2, mild-mod AR, mild TR, estimated PAP 38 mmHg
Echo 07/02/2024: Very TDS, EF 60-65%, s/p TAVR w/ peak/mean gradients 35/17 mmHg, trace AI, mild TR, estimated PAP 37-40 mmHg
Plan:
-Known severe/critical aortic stenosis. Underwent successful R TF TAVR w/ 26 mm Noemi S3 valve 07/01/2024 with minimal AI post procedure.
-Appears well, but notes feeling somewhat shaky this afternoon. Reports blood sugar was high.
-Has been ambulating to bathroom without difficulty.
-Repeat echo completed 07/02 with preserved EF, stable valve with peak/mean aortic gradients fo 35/17 mmHg as noted above.
-Known bradycardia. HR appears at baseline. No indication for PPM at this time. No significant pauses on tele overnight.
-Continue Eliquis 5mg BID and aspirin 81mg daily.
-Continue lipitor 40mg daily w/ h/o CVA and MV CAD by cath 05/2024.
-BP appears stable. OK to resume OP lisinopril and amlodipine.
-If feeling well this afternoon and shakiness improves, would be reasonable to discharge later today versus in AM if he continues to feel shaky.
-Follow up arranged.
Progress Note - Motorcycle Deliverer
Subjective
Date of Service: July 02, 2024
Feeling well, but dose feel a bit shaky this afternoon
Objective
Labs:
07/02/24 04:26
07/02/24 04:26
Labs
Hgb 12.4 g/dL (13.0-18.0) L 07/02/24 04:26
Hct 35.9 % (39.0-52.0) L 07/02/24 04:26
Plt Count 132 10^3/uL (130-400) D 07/02/24 04:26
PT 14.8 Sec (11.4-14.6) H 06/25/24 10:05
INR 1.13 06/25/24 10:05
APTT 31.4 Sec (23.4-35.0) 06/25/24 10:05
Sodium 136 mmol/L (135-145) 07/02/24 04:26
Potassium 5.0 mmol/L (3.5-5.1) 07/02/24 04:26
BUN 28 mg/dl (9-20) H 07/02/24 04:26
Creatinine 1.1 mg/dL (0.7-1.3) 07/02/24 04:26
Glucose 101 mg/dl (70-99) H 07/02/24 04:26
Vital Signs and I&O:
Vital Signs
Temp Pulse Resp BP Pulse Ox
98.1 F 49 13 145/55 99
07/02/24 07:32 07/02/24 09:00 07/02/24 09:00 07/02/24 08:59 07/02/24 08:30
Vital Signs
Temp Pulse Resp BP Pulse Ox
98.1 F 49 13 145/55 99
07/02/24 07:32 07/02/24 09:00 07/02/24 09:00 07/02/24 08:59 07/02/24 08:30
Intake & Output
03/1207/01/24 07/02/24 07/03/24
06:59 06:59 06:59 06:59
Output Total 490 / 490
Balance -490 / -490
Physical Exam
Physical Exam
GEN: No distress, awake, alert, oriented x3
HEENT: supple, anicteric, mmm
LUNGS: CTA b/l, no wheezes/rales
CV: Reg, S1/S2, no murmur
EXT: No clubbing, cyanosis, or edema
NEURO: Gross non-focal
SKIN: Warm, dry, no rash
--- NOTE | 2024-07-02 11:26 | W.PN.ANS.POP ---
Anesthesia Post Operative
- Anesthesia Post Op Note
Vital Signs Stable-See Nursing Note: Yes
Airway Patent: Yes
Adequate Pain Control: Yes
Change in Mental Status: No
Current Postoperative Nausea & Vomiting: No
Anesthesia Complications: No
General Anesthetic Recall: No
Unplanned Admission: No
Post Op Hydration Adequate: Yes
--- NOTE | 2024-07-02 11:30 | PTCARENOTE ---
Temporary pacing wire d/c'd by CV PA. Left venous d/c'd by RN. Post angiography protocol followed. Pt oob at 1045. Will monitor.
[2024-07-02 13:11] LABS: Glucose - Point of Care 209 mg/dl (70-99)
--- NOTE | 2024-07-02 13:15 | PTCARENOTE ---
Pt c/o being cold and 'just not feeling well'. VSS. Pt's blood glucose checked. Accu check 209. Pt given a warm blanket.
--- NOTE | 2024-07-02 14:29 | PTCARENOTE ---
Voiding small amounts this shift, bladder scanned for 427cc. Straight cathed for 500cc dark yellow urine.
--- NOTE | 2024-07-02 14:31 | PTCARENOTE ---
Pt states that he is now feeling better. Pt now ambulating w/ cardiac rehab. Will monitor.
--- NOTE | 2024-07-02 15:30 | PTCARENOTE ---
I have precepted Leann Villalobos RN. I agree w/ assessment since 7 am. Will continue care of pt.
--- NOTE | 2024-07-02 16:15 | PTCARENOTE ---
Pt sitting at bedside and developed a sudden onset of 5 out of 10 chest pain. He describes this pain as throbbing. His pain is located under his left breast. VSS, temp 99.2. PA notified. EKG obtained. Pt's chest pain comes and goes w/
intensity. Will monitor
[2024-07-02] MEDS: LIPITOR 40 MG PO (18:28)
[2024-07-02] MEDS: FLOMAX 0.4 MG PO (18:28)
[2024-07-02] MEDS: NSS IV (18:29)
--- NOTE | 2024-07-02 18:32 | W.PN.UPDATE ---
Update Note
Progress Note Update
patient and patient's family refused to be discharged today d/t urinary retention and complains of chest pain. EKG and CXR showed no changes. Will start flomax for retention. Will continue to monitor. Hopeful discharge tomorrow.
[2024-07-02] MEDS: ELIQUIS 5 MG PO (20:15)
[2024-07-02] MEDS: ZESTRIL 10 MG PO (20:15)
--- NOTE | 2024-07-02 23:32 | PTCARENOTE ---
assumed care of the patient at the change of shift. resting in bed comfortably. patient states feeing better. 'i just need some sleep.' denies any pain. SB/SR on tele- 50s-70s. bp stable. b/l groin site intact/soft. + pulses/no edema noted. educated
patient to inform RN with any changes overnight. call rincon within reach.
patient due to void. assisted patient to the bathroom-steady on his feet. urinated loli urine in the urinal- 200cc. bladder scan post- 20cc. made comfortable in bed.
[2024-07-03] VITALS (10 sets, daily range): BP systolic 106–141; BP diastolic 42–73; BMI 29.8
[2024-07-03 05:50] LABS: Blood Urea Nitrogen 30 mg/dl (9-20); Calcium 8.2 mg/dl (8.4-10.2); Carbon Dioxide 29 mmol/L (22-30); Chloride 100 mmol/L (98-107); Estimated Creatinine Clearance 46 ml/min; Glucose 106 mg/dl (70-99); Magnesium 1.8 mg/dl (1.6-2.3); Potassium 4.5 mmol/L (3.5-5.1); Sodium 134 mmol/L (135-145); eGFR 58.53
--- NOTE | 2024-07-03 07:47 | W.PN.CT ---
Today's Communication / Plan
-
-No major issues overnight. Hemodynamically and neurologically intact
-No longer requiring straight caths for urinary retention. Started on flomax. Voided overnight
-Groin C/D/I without significant hematoma
-Repeat echo yesterday showed a well seated TAVR, with trace AI
-Cont. Eliquis for PAF
-OOB into chair/Ambulate
-Home today
Assessment / Plan
-
- Severe symptomatic - s/p Right trans femoral TAVR with a 26mm, nominal, Mooney TAVR valve with pre-TAVR BAV on 07/01/24, pod #2
- An echocardiogram was unable to be performed due to poor windows. Hemodynamically was stable after deployment of the valve. The aortic valve appeared well seated with trace to mild detectable PVL on aortogram.
- Temporary pacing wire was left in place d/t bradycardia
- Sinus bradycardia
- Hypertension
- HLD
- Multi vessel CAD
- DM II
- CVA 2004
- Paroxysmal a-fib - on Eliquis preop
- Throat abscess with temp. trach 2004
- B/l rotator cuff repair
Discussed patient care with: Cardiology, Nursing, Respiratory Therapy, Pharmacy and Care Team
Subjective
-
Date of Service: July 03, 2024
Pt offers no complaints, feels well
Objective Data
-
Lab Results
07/02/24 04:26
07/03/24 05:09
PT 14.8 Sec (11.4-14.6) H 06/25/24 10:05
INR 1.13 06/25/24 10:05
APTT 31.4 Sec (23.4-35.0) 06/25/24 10:05
Vital Signs
Vital Signs
Temp Pulse Resp BP Pulse Ox
98.1 F 60 16 121/54 94
07/03/24 07:00 07/03/24 05:15 07/03/24 07:00 07/03/24 05:08 07/03/24 07:00
CT Intake/Output/Weight
07/02/24 07/03/24 07/03/24
18:59 06:59 18:59
Intake Total 240 / 390 150 / 390
Output Total 600 / 800 200 / 800
Balance -360 / -410 -50 / -410
SaO2: 94 (RA)
Physical Exam
-
General: Awake, Oriented and AOx3
Cardiovascular: Regular rate & rhythm, No Murmurs and No Rub
Respiratory: Clear
Incision: Clean, Dry, Intact and Dressing Intact
Extremities: Other (+trace edema)
Data Reviewed
-
Lab Results: Results Reviewed
Medications: Active Meds Reviewed
Chest X-Ray: Report Reviewed and Image Reviewed
ECG: Report Reviewed and Image Reviewed
[2024-07-03] MEDS: LASIX 40 MG PO (07:58)
[2024-07-03] MEDS: MAGNESIUM OXIDE 500 MG PO (07:59)
[2024-07-03] MEDS: ZESTRIL 10 MG PO (07:59)
[2024-07-03] MEDS: FLOMAX 0.4 MG PO (07:59)
[2024-07-03] MEDS: LOW STRENGTH ASPIRIN 81 MG PO (07:59)
[2024-07-03] MEDS: ELIQUIS 5 MG PO ×2 (07:59→22:31)
[2024-07-03] MEDS: NORVASC 5 MG PO (08:02)
--- NOTE | 2024-07-03 09:00 | W.DCSUMMARY ---
Addendum entered and electronically signed by MARCEL Jacob 07/06/24 10:29:
CDI QUERY RESPONSE
Additional secondary diagnosis:
Acute on chronic diastolic CHF
Addendum entered and electronically signed by MARCEL Harrell 07/04/24 09:58:
Discharge date: 07/04
Patient's discharge was delayed for 1 day due to dizziness. Flomax was discontinued and he was given 500ml of nss. This am, patient does not complain of dizziness. Tilts were obtained and were negative. I walked with the patient down the khan to
ensure no dizziness and he ambulated well. Patient is stable for discharge today.
Original Note:
Discharge Summary
Discharge Data
Date of Admission: 07/01/24
Date of Discharge: 07/03/24
Total time spent discharging patient (in min): 35
-
Pending Results: No
Hospital Course
Primary care physician:
Karin Razo
Outpatient food beverage supervisor:
Rene Hebert
Inpatient consultants:
FREDY
Procedures:
1. 07/01/24: Right trans femoral TAVR with a 26mm, nominal, Mooney TAVR valve with pre-TAVR BAV
Primary Diagnosis:
1. s/p TF TAVR
2. CAD
Secondary Diagnoses:
1. HTN
2. HLD
3. DM
4. CVA 2004
5. AF
6. PFO
7. B/L RTC repair
8. throat abscess with temporary tracheostomy in 2004
HPI: 88-year-old male with symptomatic severe aortic stenosis. CT-TAVR protocol revealed acceptable anatomy for TAVR access and implantation. He has multiple vessel coronary artery disease however given his comorbidities and frailty, he was not
considered an optimal candidate for surgical revascularization and surgical aortic valve replacement. After discussion with the patient and Cardiology, the plan was to move forward with intervention on his aortic valve stenosis and then revisit his
coronary disease as needed.
Hospital course: The patient was admitted via same day admissions on 07/01/24, taken to the catheterization laboratory technician, and underwent Right trans femoral TAVR. He tolerated the procedure well, however, was noted to be bradycardic after valve deployment so a
temporary pacemaker wire was placed via venous sheath. He was transferred to CVICU in stable condition on Levophed for BP support. The Levophed was slowly weaned and discontinued. POD#1 EKG revealed sinus bradycardia of 50 without any evidence of
bundle branch block. He did not require the use of his pacing wire and it was removed along with the venous sheath. Echocardiogram was performed showed a LVEF of 60-65% and peak/mean transaortic gradients are 35/17. He was stable for discharge
however patient ended up requiring 1 straight cath and was started on Flomax along with complaints of chest pain. EKG and chest x-ray were performed. Due to these findings patient's family was uncomfortable with patient going home so he was kept
overnight. On 3 postoperative day 2 patient voided overnight and did not complain of chest pain. He will be discharged home with 1 weeks worth of Flomax.
Home medication changes:
no changes to home medication regimen.
Discharge Plan
-
Patient Disposition: Home (Routine Discharge)
Discharge Diagnosis/Procedures: TF-TAVR
Condition: Good
Diet: Low Cholesterol and 2 Gram Sodium
Activity: As tolerated
Driving Restrictions: No driving for 1 week
Bathing Restrictions: OK to Shower
Others Tests: 30 day follow up echocardiogram:
Other Services: Cardiac Rehab
Wound Care: Please do not apply lotions, creams or powders to groin areas. Please monitor for increased pain, redness, swelling or drainage. Notify your doctor if any occur.
Specialty Instructions: Weigh Daily- Call MD for wt gain/loss 3 lbs overnight/5 lbs in 1 week
Instructions: Transcatheter aortic valve implantation - Discharge instructions, Transcatheter aortic valve implantation
Referrals:
CT Transitional Care Nurse [Outside] (The Cardiothoracic Transitional Care Nurse will call you to set up a visit in 1-2 days.)
[facility] Cardiac Rehab [Outside] - 08/04/24 1:00 pm
(Cardiac Rehab Orientation appointment is on 08/04/24 at 1:00 pm
The Cardiac Rehab gym is located on the first floor of the Cardiovascular [facility]ilion.)
Betsy Browne PA-C [Specified Professional Personl] - 07/28/24 10:20 am
Dung Frazier MD [Family Provider] -
Prescriptions:
New
acetaminophen 325 mg Tablet
650 mg PO Q4HPRN PRN (Reason: GRAY, mild pain, or fever >101F) Qty: 0 0RF
tamsulosin [Flomax] 0.4 mg capsule
0.4 mg PO DAILY Qty: 10 0RF
Continued
atorvastatin 40 MG tablet
40 mg PO QPM Qty: 30 0RF
lisinopril 10 MG tablet
10 mg PO BID Qty: 60 0RF
amlodipine 5 MG tablet
5 mg PO DAILY Qty: 60 0RF
Eliquis 5 MG tablet
5 mg PO Q12H 0RF
aspirin 81 mg Tablet,Chewable
81 mg PO DAILY
Discharge Orders:
Discharge Patient (As Directed); Ordered 07/03/24
Ordered By: Nissa Almodovar
Care Plan Goals
Care Plan Goals:
Problem: Readiness for enhanced knowledge related to diagnosis and treatment plan
Goal: Understand your diagnosis and treatment plan needs, including medications if applicable.
Instructions: Know your diagnosis, underlying causes and treatment plan options, including medications if applicable. Consult with your health care team to learn about your diagnosis and treatment plan, including medications if applicable.
Discharge Date and Time
Print Language: BULGARIAN
--- NOTE | 2024-07-03 11:13 | PTCARENOTE ---
received patient this am in bed resting. monitor shows NSR, VSS. patient voices no concerns of pain. Lasix po given as ordered. patient will be discharged to home later this afternoon when his family can come get him.
--- NOTE | 2024-07-03 11:18 | W.PN.CARDCBS ---
Today's Communication / Plan
-
Stable for discharge from cardiac point of view
Telemetry stable
Impression / Plan
-
Primary Customer Quality Engineer: Dr. Hebert
Impression:
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
Paroxysmal atrial fibrillation
Chronic Eliquis AC
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
h/o CVA 2020
PFO/ASD
Right pharynx cellulitis with parapharyngeal abscess requiring temporary tracheostomy 2004
HTN
NIDDM
HLD
mod by echo 2018
hypomagnesemia
ECHO 2019: EF>75%, mild to mod MR, mod , peak/mean gradients 48/29mmHg, RONNI 1.1 cm2, mod TR
Echo 04/30/2024: EF 55-60%, moderate cLVH, stage I diastolic dysfunction, severe/critical with peak/mean gradients 104/64 mmHg, RONNI 0.64 cm2, mild-mod AR, mild TR, estimated PAP 38 mmHg
Echo 07/02/2024: Very TDS, EF 60-65%, s/p TAVR w/ peak/mean gradients 35/17 mmHg, trace AI, mild TR, estimated PAP 37-40 mmHg
Plan:
-Known severe/critical aortic stenosis. Underwent successful R TF TAVR w/ 26 mm Noemi S3 valve 07/01/2024 with minimal AI post procedure.
-He has no complaints overnight
-Has been ambulating to bathroom without difficulty.
-Echo completed 07/02 with preserved EF, stable valve with peak/mean aortic gradients fo 35/17 mmHg as noted above.
-Known bradycardia. Telemetry reviewed and stable. No indication for PPM at this time.
-Continue Eliquis 5mg BID and aspirin 81mg daily.
-Continue lipitor 40mg daily w/ h/o CVA and MV CAD by cath 05/2024.
-BP appears stable. Continue current treatment.
Patient feels comfortable going home. Follow-up arranged.
Progress Note - Customer Quality Engineer
Subjective
Date of Service: July 03, 2024
No complaints overnight denies chest pain and palpitations
Objective
Labs:
07/02/24 04:26
07/03/24 05:09
Labs
Hgb 12.4 g/dL (13.0-18.0) L 07/02/24 04:26
Hct 35.9 % (39.0-52.0) L 07/02/24 04:26
Plt Count 132 10^3/uL (130-400) D 07/02/24 04:26
PT 14.8 Sec (11.4-14.6) H 06/25/24 10:05
INR 1.13 06/25/24 10:05
APTT 31.4 Sec (23.4-35.0) 06/25/24 10:05
Sodium 134 mmol/L (135-145) L 07/03/24 05:09
Potassium 4.5 mmol/L (3.5-5.1) 07/03/24 05:09
BUN 30 mg/dl (9-20) H 07/03/24 05:09
Creatinine 1.2 mg/dL (0.7-1.3) 07/03/24 05:09
Glucose 106 mg/dl (70-99) H 07/03/24 05:09
Vital Signs and I&O:
Vital Signs
Temp Pulse Resp BP Pulse Ox
98.1 F 58 16 129/54 95
07/03/24 07:00 07/03/24 09:00 07/03/24 07:00 07/03/24 08:02 07/03/24 08:58
Vital Signs
Temp Pulse Resp BP Pulse Ox
98.1 F 58 16 129/54 95
07/03/24 07:00 07/03/24 09:00 07/03/24 07:00 07/03/24 08:02 07/03/24 08:58
Intake & Output
07/01/24 07/02/24 07/03/24 07/04/24
06:59 06:59 06:59 06:59
Intake Total 390 / 390
Output Total 490 / 490 800 / 800
Balance -490 / -490 -410 / -410
Physical Exam
Physical Exam
General: Well developed, well nourished in NAD.
Heart: Non displaced PMI, RRR, no murmurs, No S3, S4, no rubs.
Lungs: Coarse anterior breath sounds
Extremities: No clubbing, cyanosis or edema bilaterally.
Neuro: Awake and appropriate
--- NOTE | 2024-07-03 12:54 | PTCARENOTE ---
patient getting dressed ready to be discharge, patient became dizzy and needed to lay down to feel better. TT Nissa CVNP, obtained orthostatics, 114/53, 96/53, 137/90. placed patient back on monitor, NSR/SB. patient will need to wait before going
home to make sure dizziness subsides.
[2024-07-03 13:26] LABS: Glucose - Point of Care 123 mg/dl (70-99)
--- NOTE | 2024-07-03 13:28 | PTCARENOTE ---
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
IV placed in left arm #22p, IV 500cc bolus of NSS given as per Nissa CVNP. monitor showed NSR, BP 126/50, BS 123. Nissa CVPA in room assessing patient. EKG obtained. patient aware that he cannot get OOB without assist of staff, patient
verbalizes understanding.
--- NOTE | 2024-07-03 13:49 | W.PN.UPDATE ---
Update Note
Progress Note Update
patient was getting dressed for discharged and become dizzy. Tilts were obtained BP laying 114/53, sitting 96/53, standing 139/90. However, patient wasn't standing the whole time and became dizzy. He later was OOB and became dizzy and legs buckled.
Nursing assisted him back to bed. 500ml of NSS was given. Flomax discontinued. Discharge is cancelled for today.
[2024-07-03] MEDS: LIPITOR 40 MG PO (17:13)
--- NOTE | 2024-07-03 23:28 | PTCARENOTE ---
pt is sb on the monitor, hr in the 50s, vss. pt offers no complaints at this time. pt ambulated into the br and tolerated well. pt educated on plan of care and pt verbalized understanding. call rincon within reach.
[2024-07-04 03:17] VITALS: BP 159/63
[2024-07-04 03:19] VITALS: BMI 29.0
[2024-07-04 03:37] LABS: Ionized Calcium 1.14 mMOL/L (1.15-1.33)
[2024-07-04 03:56] LABS: Hematocrit 34.9 % (39.0-52.0); Hemoglobin 12.2 g/dL (13.0-18.0); Mean Corpuscular Hgb 31.3 pg (27.0-31.0); Mean Corpuscular Volume 89.5 fL (80.0-94.0); Mean Platelet Volume 10.6 fL (7.4-10.4); Platelet Count 94 10^3/uL (130-400); Red Cell Dist. Width 12.7 % (11.5-14.5); White Blood Cell Count 8.9 10^3/uL (4.8-10.8)
[2024-07-04 04:05] LABS: Blood Urea Nitrogen 28 mg/dl (9-20); Calcium 8.6 mg/dl (8.4-10.2); Carbon Dioxide 27 mmol/L (22-30); Chloride 99 mmol/L (98-107); Estimated Creatinine Clearance 44 ml/min; Glucose 95 mg/dl (70-99); Magnesium 1.8 mg/dl (1.6-2.3); Potassium 4.4 mmol/L (3.5-5.1); Sodium 135 mmol/L (135-145); eGFR > 60.00
--- NOTE | 2024-07-04 05:32 | W.PN.CT ---
Today's Communication / Plan
-
-No major issues overnight. Hemodynamically and neurologically intact
-Had orthostasis yesterday while being diuresed. Was on Norvasc, Lisinopril and Flomax which might have been too much, dropping BP
-Flomax has been D/C'd. Held antihypertensives last night. BP back up this AM, will avoid diuresis and resume home antihypertensive
-Spontaneously voiding without issues. Had urinary retention immediately postop
-Groin C/D/I without significant hematoma
-Repeat echo on 07/02 showed a well seated TAVR, with trace AI
-Cont. Eliquis for PAF
-OOB into chair/Ambulate
-Home today
Assessment / Plan
-
- Severe symptomatic - s/p Right trans femoral TAVR with a 26mm, nominal, Mooney TAVR valve with pre-TAVR BAV on 07/01/24, pod #3
- An echocardiogram was unable to be performed due to poor windows. Hemodynamically was stable after deployment of the valve. The aortic valve appeared well seated with trace to mild detectable PVL on aortogram.
- Temporary pacing wire was left in place d/t bradycardia
- Sinus bradycardia
- Hypertension
- HLD
- Multi vessel CAD
- DM II
- CVA 2004
- Paroxysmal a-fib - on Eliquis preop
- Throat abscess with temp. trach 2004
- B/l rotator cuff repair
-Postop urinary retention
-Acute postop orthostasis
Discussed patient care with: Cardiology, Nursing, Respiratory Therapy, Pharmacy and Care Team
Subjective
-
Date of Service: July 04, 2024
Pt offers no complaints
Objective Data
-
Lab Results
07/04/24 03:20
07/04/24 03:20
PT 14.8 Sec (11.4-14.6) H 06/25/24 10:05
INR 1.13 06/25/24 10:05
APTT 31.4 Sec (23.4-35.0) 06/25/24 10:05
Vital Signs
Vital Signs
Temp Pulse Resp BP Pulse Ox
98.0 F 51 18 159/63 96
07/04/24 03:18 07/04/24 04:00 07/04/24 03:18 07/04/24 03:17 07/04/24 03:18
CT Intake/Output/Weight
07/03/24 07/03/24 07/04/24
06:59 18:59 06:59
Intake Total 150 / 390 480 / 480
Output Total 200 / 800 1300 / 1300
Balance -50 / -410 -1300 / -820 480 / -820
SaO2: 96 (RA)
Physical Exam
-
General: Awake, Oriented and AOx3
Cardiovascular: Regular rate & rhythm, No Murmurs, No Rub and No Gallop
Respiratory: Clear
Sternum: Stable
Incision: Clean, Dry, Intact and Dressing Intact
Extremities: No Edema
Data Reviewed
-
Lab Results: Results Reviewed
Medications: Active Meds Reviewed
Chest X-Ray: Report Reviewed and Image Reviewed
ECG: Report Reviewed and Image Reviewed
[2024-07-04] MEDS: MAGNESIUM OXIDE 500 MG PO ×2 (05:45→08:54)
[2024-07-04] MEDS: CALCIUM GLUCONATE 100 IV (05:45)
[2024-07-04 07:40] VITALS: BP 122/41
[2024-07-04] MEDS: ZESTRIL 10 MG PO (08:49)
[2024-07-04] MEDS: LOW STRENGTH ASPIRIN 81 MG PO (08:50)
[2024-07-04] MEDS: NORVASC 5 MG PO (08:50)
[2024-07-04] MEDS: ELIQUIS 5 MG PO (08:50)
[2024-07-04 09:29] VITALS: BP 126/64
[2024-07-04 09:30] VITALS: BP 124/56
--- NOTE | 2024-07-04 09:37 | PTCARENOTE ---
received patient this am sitting up in bed, no c/o dizziness. orthostatic BP taken 138/66,126/64, 124/56, Nissa CVNP aware. patient ambulated in pending sale to [facility]. well. monitor shows NSR, VSS. right and left groin dsg. D/I, distal pulse palpable.
daughter at bedside.
--- NOTE | 2024-07-04 09:50 | W.PN.CARDCBS ---
Today's Communication / Plan
-
Stable for discharge
Caution with changing position discussed
Follow-up in the office
Impression / Plan
-
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
Impression:
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
Paroxysmal atrial fibrillation
Chronic Eliquis AC
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
h/o CVA 2004, 2020
PFO/ASD
Right pharynx cellulitis with parapharyngeal abscess requiring temporary tracheostomy 2004
HTN
NIDDM
HLD
mod by echo 2018
hypomagnesemia
ECHO 2019: EF>75%, mild to mod MR, mod , peak/mean gradients 48/29mmHg, RONNI 1.1 cm2, mod TR
Echo 04/30/2024: EF 55-60%, moderate cLVH, stage I diastolic dysfunction, severe/critical with peak/mean gradients 104/64 mmHg, RONNI 0.64 cm2, mild-mod AR, mild TR, estimated PAP 38 mmHg
Echo 07/02/2024: Very TDS, EF 60-65%, s/p TAVR w/ peak/mean gradients 35/17 mmHg, trace AI, mild TR, estimated PAP 37-40 mmHg
Plan:
Plan was for discharge yesterday but became lightheaded with getting out of bed. He tells me he does move too quickly at times. Family is at the bedside.
-We reviewed techniques for getting out of bed slowly with some isometric exercises and taking his time standing before he walks. Flomax was held and he is feeling better overall.
-Known severe/critical aortic stenosis. Underwent successful R TF TAVR w/ 26 mm Noemi S3 valve 07/01/2024 with minimal AI post procedure.
-Echo completed 07/02 with preserved EF, stable valve with peak/mean aortic gradients fo 35/17 mmHg as noted above. Follow as an outpatient. Likely 1 month echo.
-Known bradycardia. Telemetry reviewed and stable. No indication for PPM at this time.
-Continue Eliquis 5mg BID and aspirin 81mg daily.
-Continue lipitor 40mg daily w/ h/o CVA and MV CAD by cath 05/2024.
-BP appears stable. Continue current treatment.
Plan for discharge today. Follow-up in the office.
Progress Note - Bottle Washing Machine Operator
Subjective
Date of Service: July 04, 2024
He is feeling better today. No significant lightheadedness.
Objective
Labs:
07/04/24 03:20
07/04/24 03:20
Labs
Hgb 12.2 g/dL (13.0-18.0) L 07/04/24 03:20
Hct 34.9 % (39.0-52.0) L 07/04/24 03:20
Plt Count 94 10^3/uL (130-400) L D 07/04/24 03:20
PT 14.8 Sec (11.4-14.6) H 06/25/24 10:05
INR 1.13 06/25/24 10:05
APTT 31.4 Sec (23.4-35.0) 06/25/24 10:05
Sodium 135 mmol/L (135-145) 07/04/24 03:20
Potassium 4.4 mmol/L (3.5-5.1) 07/04/24 03:20
BUN 28 mg/dl (9-20) H 07/04/24 03:20
Creatinine 1.1 mg/dL (0.7-1.3) 07/04/24 03:20
Glucose 95 mg/dl (70-99) 07/04/24 03:20
Vital Signs and I&O:
Vital Signs
Temp Pulse Resp BP Pulse Ox
98.3 F 61 20 122/41 98
07/04/24 07:40 07/04/24 08:50 07/04/24 07:40 07/04/24 08:50 07/04/24 07:40
Vital Signs
Temp Pulse Resp BP Pulse Ox
98.3 F 61 20 122/41 98
07/04/24 07:40 07/04/24 08:50 07/04/24 07:40 07/04/24 08:50 07/04/24 07:40
Intake & Output
07/02/24 07/03/24 07/04/24 07/05/24
06:59 06:59 06:59 06:59
Intake Total 390 / 390 480 / 480
Output Total 490 / 490 800 / 800 1300 / 1300
Balance -490 / -490 -410 / -410 -820 / -820
Physical Exam
Physical Exam
General: Well developed, well nourished in NAD.
Heart: Non displaced PMI, RRR, 2/6 basal systolic murmur, No S3, S4, no rubs.
Lungs: Clear to auscultation bilaterally
Extremities: No clubbing, cyanosis or edema bilaterally.
Neuro: Grossly nonfocal, awake, alert
--- NOTE | 2024-07-04 10:21 | PTCARENOTE ---
D/C instructions given to patient and daughter, both verbalizes understanding. INT D/C'd, telemetry D/C'd, personal belongings packed and sent home with patient. D/C to home via wc accompanied by staff.
--- NOTE | 2024-07-06 07:15 | PN.CDI ---
CDI
- -
CDI:
Physician Documentation Request
Admit Date: 07/01/24 09:17
Dear Doctor Shanon,
Patient admitted with severe aortic stenosis s/p Right trans femoral TAVR with a 26mm, nominal, Mooney TAVR valve with pre-TAVR BAV on 07/01/24.
07/01 Cath report, ' Conclusions: Acute on chronic diastolic heart failure with LVEDP elevated at 23 mmHg
07/02 CT note, 'An echocardiogram was unable to be performed due to poor windows.'
06/25 Pro BNP- 1280
07/03 Lasix 40 mg po given x 1.
Please provide in your note the following:
Acute on chronic diastolic is a valid diagnosis
Acute on chronic diastolic CHF is not a valid diagnosis
Other
Use of terms such as suspected, likely, concern for, or probable (associated with a specific diagnosis that is being evaluated, monitored, or treated as if it exists) are acceptable and can be coded in the inpatient setting, when documented at the
time of discharge.
Thank you,
Tiffany MERCADO,RN,CCDS
CDI Specialist
Available via [place] text
Please use your independent medical judgment in providing your response.
--- NOTE | 2024-07-06 07:18 | PN.CDI ---
CDI
- -
CDI:
Physician Documentation Request
Admit Date: 07/01/24 09:17
Dear Laney ROD,
Patient admitted with severe aortic stenosis s/p Right trans femoral TAVR with a 26mm, nominal, Mooney TAVR valve with pre-TAVR BAV on 07/01/24.
07/01 Cath report, ' Conclusions: Acute on chronic diastolic heart failure with LVEDP elevated at 23 mmHg
07/02 CT note, 'An echocardiogram was unable to be performed due to poor windows.'
07/04 Cardiology note, '-Echo completed 07/02 with preserved EF, stable valve with peak/mean aortic gradients fo 35/17 mmHg as noted above.
06/25 Pro BNP- 1280
07/03 Lasix 40 mg po given x 1.
Please provide in your note the following:
Acute on chronic diastolic is a valid diagnosis
Acute on chronic diastolic CHF is not a valid diagnosis
Other
Use of terms such as suspected, likely, concern for, or probable (associated with a specific diagnosis that is being evaluated, monitored, or treated as if it exists) are acceptable and can be coded in the inpatient setting, when documented at the
time of discharge.
Thank you,
Tiffany MERCADO,RN,CCDS
CDI Specialist
Available via [place] text
Please use your independent medical judgment in providing your response.
--- NOTE | 2024-07-06 07:37 | PN.CDI ---
CDI
- -
CDI:
Physician Documentation Request
Admit Date: 07/01/24 09:17
Dear Laney ROD,
Patient admitted with severe aortic stenosis s/p Right trans femoral TAVR with a 26mm, nominal, Mooney TAVR valve with pre-TAVR BAV on 07/01/24.
07/01 Cath report, ' Conclusions: Acute on chronic diastolic heart failure with LVEDP elevated at 23 mmHg
07/02 CT note, 'An echocardiogram was unable to be performed due to poor windows.'
07/04 Cardiology note, '-Echo completed 07/02 with preserved EF, stable valve with peak/mean aortic gradients fo 35/17 mmHg as noted above.
06/25 Pro BNP- 1280
07/03 Lasix 40 mg po given x 1.
Please provide in your note the following:
Acute on chronic diastolic CHF is a valid diagnosis
Acute on chronic diastolic CHF is not a valid diagnosis
Other
Use of terms such as suspected, likely, concern for, or probable (associated with a specific diagnosis that is being evaluated, monitored, or treated as if it exists) are acceptable and can be coded in the inpatient setting, when documented at the
time of discharge.
Thank you,
Tiffany MERCADO,RN,CCDS
CDI Specialist
Available via [place] text
Please use your independent medical judgment in providing your response.
== END 2024-07-04 10:22 | disposition home or self-care (01) | DRG 266 ==
LOC: IVU 09:17
PROVIDERS: Physician Assistant Medical; ADMITTING PHYSICIAN Thoracic Surgery (Cardiothoracic Vascular Surgery); CONSULT PHYSICIAN Internal Medicine Interventional Cardiology; FAMILY PHYSICIAN Internal Medicine
PROC: 5A1223Z Performance of Cardiac Pacing, Continuous (ICD-10-PCS; 2024-07-01)
PROC: 02RF38Z Replacement of Aortic Valve with Zooplastic Tissue, Percutaneous Approach (ICD-10-PCS; 2024-07-01)
DX: I35.0 Nonrheumatic aortic (valve) stenosis (principal); Z00.6 Encounter for examination for normal comparison and control in clinical research program; I50.33 Acute on chronic diastolic (congestive) heart failure; Q21.12 Patent foramen ovale; R00.1 Bradycardia, unspecified; I11.0 Hypertensive heart disease with heart failure; E78.5 Hyperlipidemia, unspecified; I25.10 Atherosclerotic heart disease of native coronary artery without angina pectoris; E11.9 Type 2 diabetes mellitus without complications; R33.8 Other retention of urine; R07.9 Chest pain, unspecified; I48.0 Paroxysmal atrial fibrillation; E83.42 Hypomagnesemia; I95.1 Orthostatic hypotension; Z86.73 Personal history of transient ischemic attack (TIA), and cerebral infarction without residual deficits; Z79.01 Long term (current) use of anticoagulants
CPT/HCPCS: 93308; 33361; 36415; 71045; 71046; 76937; 80048; 80053; 81003; 81015; 82248; 82330; 82962; 83036; 83735; 83880; 85025; 85027; 85347; 85610; 85730; 86850; 86900; 86901; 86920; 87070; 93005; 93321; 93325; C1760; C1769; C1894; Q9967

== ENCOUNTER → 2024-08-05 12:42 | Outpatient (REF) | payer MEDICARE, BC, SELFPAY | LOC: RCS 12:42 | PROVIDERS: ATTENDING PHYSICIAN Internal Medicine Cardiovascular Disease; FAMILY PHYSICIAN Internal Medicine | DX: Z95.2 Presence of prosthetic heart valve (principal); I10 Essential (primary) hypertension; I48.91 Unspecified atrial fibrillation | CPT/HCPCS: 93306 ==

== ENCOUNTER 2024-08-18 11:31 | Outpatient (RCR) | payer MEDICARE, BC, SELFPAY | END 2024-08-18 23:59 | disposition home or self-care (01) | LOC: CRHB 11:31 | PROVIDERS: Internal Medicine Cardiovascular Disease; ATTENDING PHYSICIAN Internal Medicine Interventional Cardiology | DX: Z95.4 Presence of other heart-valve replacement (principal); I25.10 Atherosclerotic heart disease of native coronary artery without angina pectoris (principal) | CPT/HCPCS: G0422; G0423 ==

== ENCOUNTER 2024-09-17 16:14 | Outpatient (RCR) | payer MEDICARE, BC, SELFPAY | END 2024-09-17 23:59 | disposition home or self-care (01) | LOC: CRHB 16:14 | PROVIDERS: ATTENDING PHYSICIAN Internal Medicine Interventional Cardiology | DX: Z95.4 Presence of other heart-valve replacement (principal); I25.10 Atherosclerotic heart disease of native coronary artery without angina pectoris (principal) | CPT/HCPCS: G0422; G0423 ==

== ENCOUNTER 2024-10-18 16:49 | Outpatient (RCR) | payer MEDICARE, BC, SELFPAY ==
[2024-10-07 08:00] LABS: HDL Cholesterol 43 mg/dl; LDL Cholesterol, Calculated 35 mg/dl; Total Cholesterol 101 mg/dl (50-199); Triglyceride 118 mg/dl (10-149); Very Low Density Lipoprotein 23 mg/dl (0-30)
== END 2024-10-18 23:59 | disposition home or self-care (01) ==
LOC: CRHB 16:49
PROVIDERS: ATTENDING PHYSICIAN Internal Medicine Interventional Cardiology; FAMILY PHYSICIAN Internal Medicine
DX: I25.10 Atherosclerotic heart disease of native coronary artery without angina pectoris (principal); Z95.4 Presence of other heart-valve replacement
CPT/HCPCS: 80061; G0422; G0423

== ENCOUNTER 2024-11-10 16:06 | Outpatient (RCR) | payer MEDICARE, BC, SELFPAY | END 2024-11-11 12:39 | disposition home or self-care (01) | LOC: CRHB 16:06 | PROVIDERS: ATTENDING PHYSICIAN Internal Medicine Interventional Cardiology; FAMILY PHYSICIAN Internal Medicine | DX: I25.10 Atherosclerotic heart disease of native coronary artery without angina pectoris (principal); Z95.3 Presence of xenogenic heart valve | CPT/HCPCS: G0422; G0423 ==

== ENCOUNTER 2025-04-07 10:28 | Emergency (ER) | payer MEDICARE, BC, SELFPAY ==
--- NOTE | 2025-04-07 12:58 | ED.GENMED ---
History of Present Illness
General
Chief Complaint: Fall
Time Seen by Provider: 04/07/25 12:52
History of Present Illness
History of Present Illness:
89-year-old male presents to the emergency department for evaluation of left gluteal pain after a fall 3 days ago. He tripped and fell while loading wood into his car, landed on his left buttock. Due to numerous other things going on at home he
declined to seek evaluation until today. He has been able to bear weight with cane assistance. Takes Eliquis. Pain increasing this morning. No head injury or LOC.
Past History
Past History
ED Past Medical History: CVA, Hypercholesterolemia, NIDDM and Other (Patient has a history of atherosclerosis with a mini stroke and a previous throat infections requiring tracheostomy )
ED Past Surgical History: Cholecystectomy, Orthopedic and Other (Distress history of a rotator cuff repair, and also a tracheostomy for oral infection )
Social History
Tobacco: Smoker
Alcohol: Occasional
Drug: None
Personal:
Living: alone
Employment: Retired
Review of Systems
Review of Systems
Allergies reviewed?: Yes
All Other Systems: ROS reviewed and negative except as documented in HPI and ROS
Phy Exam
Physical Exam
Physical Exam:
GEN: Well appearing, NAD, WDWN
HEENT: Oral mucosa moist, no scleral icterus
Cardiac: Regular rate
Lung: No respiratory distress, no tachypnea
MSK: Large hematoma to the left gluteal region, no obvious shortening or external rotation of the left lower extremity. No inguinal tenderness, no lumbar tenderness
Skin: Good color, no pallor or jaundice, no rashes
Neuro: AO x3, moves all extremities freely
Psych: Calm, cooperative
Course
Orders/Labs/Results
Orders:
Orders
04/07/25 12:58
CT Pelvis W/o Iv Contrast Urgent
Comment:
Reason For Exam: L buttock injury/trauma
Oxycodone [Roxicodone] 5 mg PO NOW STA
Vital Signs
Initial and Last Documented VS:
Initial Vital Signs
Temp Pulse Resp Pulse Ox
98.0 F 76 16 98
04/07/25 10:37 04/07/25 10:37 04/07/25 10:37 04/07/25 10:37
Last Documented Vital Signs
Temp Pulse Resp BP Pulse Ox
98.0 F 70 18 145/58 98
04/07/25 10:37 04/07/25 15:45 04/07/25 15:45 04/07/25 15:45 04/07/25 15:45
MDM/Problems Addressed
MDM/Problems Addressed:
Imaging shows no evidence of acute fracture, his pain is secondary to the large hematoma. With pain medication on board he is able to ambulate with assistance and is suitable for discharge home. Discussed supportive care
*Pulse Oximetry
SaO2: 98
Oxygen Mode of Delivery: Room air
Patient hypoxic: no
*Critical Care Note
Total Time (30-74mins, 75-104mins- exclusive of procedures): Not Applicable
ED Attending Note
-
Portions of this chart may have been created with voice recognition software.� Occasional wrong word or��sound alike� substitutions may have occurred due to the inherent limitations of voice recognition software.
Discharge Plan
Departure
Patient Disposition: Home (Routine Discharge)
Date of Disposition: 04/07/25
Time of Disposition: 15:14
Patient with high blood pressure during this ER visit?: No
Discharge Problem:
Hematoma of buttock
Instructions: Hematoma
Prescriptions:
New
oxycodone-acetaminophen [Endocet] 5-325 mg tablet
1 tab PO TID PRN (Reason: Pain) Qty: 10 0RF
No Action
atorvastatin 40 MG tablet
40 mg PO QPM Qty: 30 0RF
lisinopril 10 MG tablet
10 mg PO BID Qty: 60 0RF
amlodipine 5 MG tablet
5 mg PO DAILY Qty: 60 0RF
Eliquis 5 MG tablet
5 mg PO Q12H 0RF
aspirin 81 mg Tablet,Chewable
81 mg PO DAILY
acetaminophen 325 mg Tablet
650 mg PO Q4HPRN PRN (Reason: GRAY, mild pain, or fever >101F) Qty: 0 0RF
Referrals:
Dung Frazier MD [Family Provider, Internal Medicine]
Interventions
Interventions:
*General Assessment Last Done: 04/07/25 10:37
*Neglect/Abuse Screening Last Done: 04/07/25 10:37
*ED COVID-19 Vaccine History Last Done: 04/07/25 10:37
*Risk Screen - Suicide (C-SSRS) Last Done: 04/07/25 10:37
*Nursing Disposition Last Done: 04/07/25 15:48
ED-Musculoskeletal Assessment Last Done: 04/07/25 13:28
ED- Neurological Assessment Last Done: 04/07/25 13:28
ED-Skin Assessment Last Done: 04/07/25 13:28
Discharge Date and Time
Discharge Date/Time: 04/07/25 15:48
Print Language: FAROESE
[2025-04-07] MEDS: ROXICODONE 5 MG PO (13:16)
[2025-04-07 15:45] VITALS: BP 145/58
== END 2025-04-07 15:48 | disposition home or self-care (01) ==
LOC: EMR 10:28
PROVIDERS: EMERGENCY PHYSICIAN Emergency Medicine; FAMILY PHYSICIAN Internal Medicine
DX: S30.0XXA Contusion of lower back and pelvis, initial encounter (principal); W01.0XXA Fall on same level from slipping, tripping and stumbling without subsequent striking against object, initial encounter; E11.9 Type 2 diabetes mellitus without complications; E78.00 Pure hypercholesterolemia, unspecified; Z86.73 Personal history of transient ischemic attack (TIA), and cerebral infarction without residual deficits; F17.200 Nicotine dependence, unspecified, uncomplicated; Z90.49 Acquired absence of other specified parts of digestive tract; Z79.01 Long term (current) use of anticoagulants
CPT/HCPCS: 99284; 72192